=== PATIENT | female | born 2005 | race Hispanic/Latino ===

== ENCOUNTER 2023-06-26 10:31 | Emergency (ER) | payer OTHER, SELFPAY ==
[2023-06-26 10:52] VITALS: BP 121/75; PULSE 73; RESP 18; TEMP 36.7; O2SAT 99
--- NOTE | 2023-06-26 10:57 | ED.URI ---
HPI - URI/Sore Throat General Chief Complaint: Upper Respiratory Infection Stated Complaint: Fever, Bodyache Time Seen by Provider: 06/26/23 10:57 History of Present Illness HPI Narrative: 18-year-old female presented for complaint of fever, mild belly ache and headache yesterday. She states today she feels better but needs a negative COVID test to return to work. She denies shortness of breath, wheezing, vomiting, diarrhea or lethargy. Related Data Home Medications Medication Instructions Recorded Confirmed No Home Medications 06/26/23 06/26/23 Allergies Allergy/AdvReac Type Severity Reaction Status Date / Time No Known Allergies Allergy Verified 06/26/23 10:58 Review of Systems Review of Systems: CONSTITUTIONAL: Denies body aches, fever, chills, or sweats. EYES: Denies visual changes, redness, or discharge. ENT: Denies rhinorrhea, congestion, or otalgia. CARDIOVASCULAR: Denies chest pain, palpitations, or edema. RESPIRATORY: Denies dyspnea. GASTROINTESTINAL: Denies abdominal pain, nausea, vomiting, or diarrhea. SKIN: Denies rash, itching, or wounds. MUSCULOSKELETAL: Denies back pain, joint pain, or myalgia. NEUROLOGIC: Denies headache PMFSH Past Medical History Medical History (Updated 06/26/23 @ 13:01 by Milly Ray, JUAN A) No pertinent past medical history Exam Narrative: GENERAL: well-appearing, no acute distress. EYES: conjunctivae clear ENT: Mucous membranes moist. TMs pearly ji with normal light reflex bilaterally; no tragal tenderness. Oropharynx erythematous without lesions. No drooling, no hoarseness, no trismus, uvula midline. No tripod positioning, hot potato voice, or soft palate swelling. NECK: Supple. No lymphadenopathy CHEST: Clear to auscultation, breath sounds equal. No respiratory distress, speaks in full sentences. HEART: Regular rate and rhythm. No murmur heard. SKIN: Warm, dry, no rash. NEURO: Alert and oriented x3. Course Course Emergency Course: Patient is aware of diagnosis, understands and agrees to treatment plan. Anticipatory guidance given. Patient agrees to follow-up as directed and is aware of reasons to seek care at the emergency department. Portions of this record may have been created with voice recognition software Level of Care: Express Care Visit Vital Signs Vital signs: Vital Signs Temperature 98.0 F 06/26/23 10:52 Pulse Rate 73 06/26/23 10:52 Respiratory Rate 18 06/26/23 10:52 Blood Pressure 121/75 06/26/23 10:52 Pulse Oximetry 99 06/26/23 10:52 Oxygen Delivery Room Air 06/26/23 10:52 Temperature 98.0 F 06/26/23 10:52 Pulse Rate 73 06/26/23 10:52 Respiratory Rate 18 06/26/23 10:52 Blood Pressure 121/75 06/26/23 10:52 Pulse Oximetry 99 06/26/23 10:52 Oxygen Delivery Room Air 06/26/23 10:52 MDM - URI/Sore Throat MDM Narrative Medical decision making narrative: neg flu and covid results reviewed with pt. Advise supportive treatments. Patient is appropriate for outpatient treatment and follow-up. Differential Diagnosis Differential diagnosis: Likely upper respiratory infection, viral infection and pharyngitis Lab Data Labs: Influenza A Screen Negative Reference Range: Negative Influenza B Screen Negative Reference Range: Negative Discharge Plan Discharge Clinical Impression: Viral infection Patient Disposition: Home, Self-Care Condition: Stable Instructions: Antibiotic Form, Upper Respiratory Infection (ED) Additional Instructions: Your COVID test was negative today. Recommend Flonase spray and Zyrtec (or Claritin/Mayra) over the counter Cough syrup may cause drowsiness; avoid driving or take it at night time. Tylenol 1000mg every 8 hours as needed for pain Symptomatic treatment includes: rest, fluids, and increase humid
== END 2023-06-26 11:45 | disposition home or self-care (01) ==
PROVIDERS: Emergency Provider Nurse Practitioner Family
DX: B34.9 Viral infection, unspecified (principal)
CPT/HCPCS: 87804; 99213; G0463

== ENCOUNTER 2023-11-11 15:51 | Emergency (ER) | payer OTHER, SELFPAY ==
[2023-11-11 16:02] VITALS: BP 125/67; PULSE 92; RESP 18; TEMP 36.2; O2SAT 97
--- NOTE | 2023-11-11 16:24 | ED.HA ---
HPI - Headache General Chief Complaint: Headache Stated Complaint: head pain Time Seen by Provider: 11/11/23 16:04 Source: patient and RN notes reviewed Mode of arrival: ambulatory Limitations: no limitations History of Present Illness HPI Narrative: Patient presents today with a 2 day history of headache that is located occipitally and in the bilateral parietal areas. States the headache was intermittent but today it is fairly constant. Associated symptoms include nausea, photophobia, phonophobia. Denies vomiting, fever, neck pain, vision changes, dizziness or lightheadedness. Denies recent illness. Currently rates her pain 8/10. She has been taking ibuprofen and Benadryl without much relief. Last dose of both of these or at 8:00 a.m. this morning. Denies that this is the worst headache of her life. History of frequent headaches, but denies migraine diagnosis. Related Data Allergies Allergy/AdvReac Type Severity Reaction Status Date / Time No Known Allergies Allergy Verified 11/11/23 16:04 Review of Systems Review of Systems: CONSTITUTIONAL: Denies body aches, fever, chills, or sweats. EYES: Denies visual changes, redness, or discharge.+ photophobia ENT: Denies rhinorrhea, congestion, sore throat, or otalgia.+ phonophobia CARDIOVASCULAR: Denies chest pain, palpitations, or edema. RESPIRATORY: Denies cough or dyspnea. GASTROINTESTINAL: Denies abdominal pain, vomiting, or diarrhea.+ nausea GENITOURINARY: Denies dysuria or hematuria. SKIN: Denies rash, itching, or wounds. MUSCULOSKELETAL: Denies back pain, joint pain, or myalgia. NEUROLOGIC: Denies numbness, tingling, or weakness.+ headache PSYCH: Denies depression or anxiety. PMFSH Past Medical History Medical History No pertinent past medical history Comments At time of signature, I have reviewed and agree with nursing past medical, surgical, social and family history unless otherwise noted. Please see nursing chart for further information. There is no relevant family history pertinent to the presenting complaint Exam Narrative: GENERAL: Well-appearing, well-nourished, and in no acute distress. HEAD: Normocephalic, atraumatic. EYES: EOMI. PERRL. No nystagmus. No redness or drainage. Conjunctivae normal. ENT: Mucous membranes pink and moist. NECK: Normal AROM. Supple. No lymphadenopathy. CHEST: No respiratory distress. Clear to auscultation. HEART: Regular rate and rhythm. No murmur appreciated. EXTREMITIES: Normal range of motion. No edema. SKIN: Warm, dry, no rash. Capillary refill normal. Normal skin turgor. NEURO: No focal deficits. Alert and oriented x3. Gait steady. PSYCH: Normal affect. No signs of depression or anxiety. Course Course Emergency Course: 6- pain decreased to 6/10 after medications at [facility] [place]. Level of Care: Express Care Visit Vital Signs Vital signs: Vital Signs Temperature 97.2 F L 11/11/23 16:02 Pulse Rate 92 11/11/23 16:02 Respiratory Rate 18 11/11/23 16:02 Blood Pressure 125/67 11/11/23 16:02 Pulse Oximetry 97 11/11/23 16:02 Oxygen Delivery Room Air 11/11/23 16:02 Temperature 97.2 F L 11/11/23 16:02 Pulse Rate 92 11/11/23 16:02 Respiratory Rate 18 11/11/23 16:02 Blood Pressure 125/67 11/11/23 16:02 Pulse Oximetry 97 11/11/23 16:02 Oxygen Delivery Room Air 11/11/23 16:02 Reviewed MDM - Headache MDM Narrative Medical decision making narrative: Prescription for prednisone and Zofran sent to pharmacy to start tomorrow. Recommend continuing Benadryl. Differential Diagnosis Differential diagnosis: Likely migraine, tension headache, headache and other (Cluster headache) Critical Care Time Critical Care Time Critical Care Time: No Discharge Plan Discharge Clinical Impression: Headache Qualifiers: Headache type: unspecified Headache chronicity pattern: acute headache Intractability:
[2023-11-11] MEDS: predniSONE 10 MG TABLET 50 MG PO (16:38)
[2023-11-11] MEDS: diphenhydrAMINE HCl CAP 25 MG CAPSULE 50 MG PO (16:38)
[2023-11-11] MEDS: KETOROLAC (*BKC) 60 MG/2 ML VIAL IM (16:39)
[2023-11-11] MEDS: ONDANSETRON HCL ODT 4 MG TABLET PO (16:39)
== END 2023-11-11 17:18 | disposition home or self-care (01) ==
PROVIDERS: Emergency Provider Nurse Practitioner; PCP Physician Assistant
DX: R51.9 Headache, unspecified (principal)
CPT/HCPCS: 96372; 99213; A9270; G0463; J1885; J7512